=== PATIENT | female | born 1995 | race Caucasian/White ===

== ENCOUNTER 2019-02-26 08:10 | Day surgery (SDC) | payer OTHER ==
[2019-02-26] MEDS ORDERED: MIDAZOLAM 1 MG/ML 2 ML INJ ×2 (12:24)
[2019-02-26] MEDS ORDERED: FENTAnyl 50 MCG/ML VIAL (12:24)
== END 2019-02-26 13:59 | disposition home or self-care (01) ==
LOC: GIL 08:10
DX: K92.1 Melena (principal); K64.8 Other hemorrhoids
CPT/HCPCS: 45378; 84703